=== PATIENT | female | born 1990 | race Caucasian/White ===

== ENCOUNTER 2022-12-21 03:11 | Day surgery (SDC) | payer OTHER, SELFPAY ==
[2022-12-13 10:00] VITALS: BMI 37.3
--- NOTE | 2022-12-13 10:16 | SUR.PREOP ---
Report to the Outpatient Waiting Room, entrance under the green pavilion located off [facility], at time 1200 on date 12/21/22. Planned Procedure Time: 1400. Time changes happen often and if your time is changed the preop area will call you the afternoon before. - You and your visitor will be asked to self-screen and do not enter if you have any COVID symptoms. - A mask is optional within the hospital at this time. Patients may have clear liquids (water, carbonated beverages, clear teas, apple juice) until 3 hours prior to surgery with a maximum of 20 ounces. - No food from midnight until time of surgery BEFORE 11:00 AM - Infants may have breast milk until 4 hours before surgery, infant formula 6 hours prior to surgery. - Children will be allowed to drink immediately following surgery. If applicable, please bring a bottle or sippy cup to assist with drinking. Juice, water, soda, and popsicles are readily available. For infants on formula, please bring formula the day of surgery. Pacifiers are allowed. Take the following medications with a SIP of water the morning of surgery: __N/A___ DO NOT STOP ANY OF YOUR OTHER PRESCRIPTION MEDICATIONS PRIOR TO SURGERY ?EXCEPT THE FOLLOWING Medications to discontinue per physician N/A Date to take last dose Please no make-up, nail albanian, hairspray, perfume, deodorant, or body powder the day of surgery. No jewelry (including any body piercings) or valuables the day of surgery, leave them at home. Please take a shower or bath the night before, or the morning of, surgery with an antibacterial soap. Wear comfortable, loose fitting clothing. Children are encouraged to wear pajamas. - Jewelry must be removed prior to entering the operating room. Rings and piercings that are not removed may be cut off. - The hospital will not accept responsibility for valuables. - Please leave all valuables, including medications, at home the day of surgery. If you are going home after surgery, a licensed concrete mixing truck driver must drive you home. - NO public transportation without another adult if you receive anesthesia. - We recommend that an adult stay with you for 24 hours following discharge. - We also recommend that you do not drive, make important decision, drink alcoholic beverages, or take any drugs that were not prescribed by your health care provider for at least 24 hours after your discharge time. For Pediatric surgeries, we recommend two adults accompany the child home. Follow any additional instructions given to you from your surgeon. If you or anyone in your household have experienced Covid symptoms in the past week, please notify your surgeon or the nurse liaison at the phone number below for possible testing. Telephone instructions given to _PATIENT_and asked if any additional questions and then verbalized understanding. Patient advised to call surgeon office or pre surgery nurse liaison [phone] if any additional questions.
--- NOTE | 2022-12-20 13:47 | PM.IMHP ---
H&P: HPI History of Present Illness Date/Time: 12/20/22 13:47 Chief Complaint: encounter for permanent sterilization Narrative: 32-year-old female who presents for laparoscopic bilateral salpingectomy for permanent sterilization. Patient does not desire any future children. She has previously tried long-acting reversible contraceptives. Review of Systems Cardiovascular: Cardiovascular: Denies chest pain, Denies leg edema, Denies palpitations, Denies dyspnea and Denies dyspnea on exertion Respiratory: Respiratory: Denies cough, Denies dyspnea and Denies dyspnea on exertion Gastrointestinal: Gastrointestinal: Denies abdominal pain, Denies constipation, Denies diarrhea, Denies nausea and Denies vomiting Genitourinary: Genitourinary: Denies hematuria, Denies urinary frequency, Denies dysuria, Denies pelvic pain, Denies urinary incontinence and Denies vaginal discharge Neurologic: Reports system reviewed and no additional complaints, except as documented Psychiatric: Psychiatric: Reports no additional psychiatric complaints Endocrine: Endocrine: Denies palpitations PMFSH Past Medical History Medical History (System 11/24/22 @ 06:43 by Kathy Lebron) Asthma Encounter for surveillance of implantable subdermal contraceptive Surgical History Surgical History (System 11/24/22 @ 06:43 by Kathy Lebron) H/O gynecological procedure 2022 Nexplanon removal 2020 Nexplanon removal/reinsertion 2016 Nexplanon insertion 2014 IUD insertion and removal 2015 Nexplanon removal 2014 Nexplanon insertion Social History Social History (System 11/24/22 @ 06:43 by Kathy Lebron) Smoking status: Current every day smoker Tobacco type: e-cigarettes/vaping Additional smoking assessment comments: PT VAPES DAILY FOR 2 YRS Alcohol intake: current Alcohol use details: OCCASIONALY Substance use: never Lack of Transportation: No Lack of Food: Never True Current Housing: I Have Housing Concerned About Future Housing: No Difficulty Paying Gas/Electric Bills: No Difficulty Paying for Meds: No Currently Unemployed: No Education: Associate Degree Difficulty w/ Childcare or Family Care: No Living arrangements: with family Additional living arrangements comments: children Occupation/Education: occupation Gender identity (if verbalized by the patient): Female Sexual Orientation (if Verbalized by the Patient): Straight or Heterosexual Spiritual care concerns: No Meds Home Medications and Allergies Home Medications Medication Instructions Recorded Confirmed Type No Home Medications 09/28/23 10/18/23 History Allergies Allergy/AdvReac Type Severity Reaction Status Date / Time No Known Allergies Allergy Verified 11/24/22 06:43 Exam Const: General: no acute distress Eyes: EOM: EOMs intact bilaterally Neck: Neck: supple Thyroid: thyroid normal Chest: Breast/axilla inspection: normal inspection of the breasts Breast/axilla palpation: normal palpation of the breasts, normal palpation of the axillae and no axillary lymphadenopathy Resp: Effort & Inspection: normal respiratory effort Auscultation: clear to auscultation bilaterally Cardio: Rate: regular rate Rhythm: regular rhythm GI: Inspection: non-distended GI Palp: Yes Soft to palpation, No Tenderness to palpation present (GI) and No Guarding due to palpation present (GI) Auscultation: normal bowel sounds : General: No bladder normal to palpation External Female Exam: normal external appearance Speculum Exam - Vagina: normal vaginal discharge and No vaginal bleeding Speculum Exam - Cervix: nontender Bimanual exam- vagina & uterus: No bladder normal to palpation and No Cervical tenderness present OB/external & speculum: No vaginal bleeding Skin: General skin exam: normal color and no rashes or lesions noted Neuro: Cognition (Neuro): normal cognition Speech: normal speech Extrem: General: normal
[2022-12-21] VITALS (8 sets, daily range): BP systolic 96–113; BP diastolic 45–71; PULSE 77–112; RESP 15–20; TEMP 36.3; O2SAT 96–100
--- NOTE | 2022-12-21 11:14 | WPDHPUPDATE1 ---
History and Physical Update Update Date/Time: 12/21/22 11:14 History and Physical has been reviewed, including an updated exam of the patient. There are NO changes in the patient's condition. Risks, benefits, and alternatives have been discussed and questions answered. Patient agrees to proceed with procedure.
[2022-12-21] MEDS: ACETAMINOPHEN 500 MG TABLET 1000 MG PO (11:59)
[2022-12-21] MEDS: LACTATED RINGERS 1,000 ML 30 ML IV CONT ×2 (12:10→15:09)
[2022-12-21 12:16] LABS: Hematocrit 42.6 % (37.0-47.0); Hemoglobin 14.4 g/dL (12.0-15.0); Mean Corpuscular HGB Conc 33.8 g/dl (32-36); Mean Corpuscular Volume 88.8 fl (80-100); Mean Platelet Volume 9.4 fl (7.4-10.4); Platelet Count Result 221 k/mm3 (150-375); Red Cell Distribution Width 12.7 % (11.5-14.5); White Blood Count 5.7 K/mm3 (4.5-10.0)
[2022-12-21] MEDS: KETOROLAC 15 MG/ML VIAL (*BKC) IV PUSH (12:18)
--- NOTE | 2022-12-21 14:07 | WPDANESEPPF ---
Anes - Initial Pre Proc Eval Procedure: Operation Date: 12/21/22 14:00 Proposed Procedures p Bilateral Laparoscopic Salpingectomy - Zechariah Hwang MD Date/Time: 12/21/22 14:07 Surgeon: Zechariah Hwang MD Pre Op Diagnosis: desires sterilization Patient Data Age: 32 Gender: F Height: 1.52 m Weight: 87.6 kg Last Vital Signs Temp 36.3 C L 12/21/22 12:22 Pulse 77 12/21/22 12:22 Resp 16 12/21/22 12:22 BP 110/71 12/21/22 12:22 Pulse Ox 98 12/21/22 12:22 O2 Del Method Room Air 12/21/22 12:22 Allergies Allergy/AdvReac Type Severity Reaction Status Date / Time No Known Allergies Allergy Verified 12/21/22 11:49 Home Medications Medication Instructions Recorded Confirmed Type No Home Medications 11/23/22 12/13/22 History Laboratory Tests 12/21/22 12:09 WBC 5.7 K/mm3 (4.5-10.0) RBC 4.80 M/mm3 (4.2-5.4) Hgb 14.4 g/dL (12.0-15.0) Hct 42.6 % (37.0-47.0) MCV 88.8 fl (80-100) MCH 30.0 pg (26-34) MCHC 33.8 g/dl (32-36) RDW 12.7 % (11.5-14.5) Plt Count 221 k/mm3 (150-375) MPV 9.4 fl (7.4-10.4) Patient hx anesthesia problems: none Family hx anesthesia problems: none Results Review: All pre-operative results and documents have been reviewed as part of the pre-operative evaluation. [facility] Past Medical History Medical History (System 11/24/22 @ 06:43 by Kathy Lebron) Asthma Encounter for surveillance of implantable subdermal contraceptive Surgical History Surgical History (System 11/24/22 @ 06:43 by Kathy Lebron) H/O gynecological procedure 2022 Nexplanon removal 2020 Nexplanon removal/reinsertion 2015 Nexplanon insertion 2014 IUD insertion and removal 2014 Nexplanon removal 2014 Nexplanon insertion Social History Social History (System 11/24/22 @ 06:43 by Kathy Roche Smoking status: Current every day smoker Tobacco type: e-cigarettes/vaping Additional smoking assessment comments: PT VAPES DAILY FOR 2 YRS Alcohol intake: current Alcohol use details: OCCASIONALY Substance use: never Lack of Transportation: No Lack of Food: Never True Current Housing: I Have Housing Concerned About Future Housing: No Difficulty Paying Gas/Electric Bills: No Difficulty Paying for Meds: No Currently Unemployed: No Education: Associate Degree Difficulty w/ Childcare or Family Care: No Living arrangements: with family Additional living arrangements comments: children Occupation/Education: occupation Gender identity (if verbalized by the patient): Female Sexual Orientation (if Verbalized by the Patient): Straight or Heterosexual Spiritual care concerns: No Anes - Eval Final PreProcedure Day of Procedure 12/21/22 14:07 Patient weight: obese Heart: regular rate and rhythm Lungs: clear to auscultation Airway: Mallampati scale class II Neurological: alert and oriented Last oral intake: >/= 8 hours ASA classification: II Emergent: no Anesthetic plan: proceed Anesthesia type and monitoring: general ETT and standard monitoring Results Review: All pre-operative results and documents have been reviewed as part of the pre-operative evaluation. Informed Consent: The patient's anesthetic plan and its attendant risks and benefits were discussed with the patient/family/POA. Questions were solicited and answers provided to the satisfaction of the patient/family/POA.
--- NOTE | 2022-12-21 14:55 | P.OP_ITS ---
Procedure Note - Detailed Date of Procedure 12/21/22 Pre-op Diagnosis desires sterilization Post-op Diagnosis Same Procedure Performed laparoscopic bilateral salpingectomy Surgeon Zechariah Hwang MD Anesthesia General Indications desires permanent sterilization Findings normal appearing uterus, bilateral fallopian tubes and ovaries incarcerated GI epiploica Description of Procedure the patient was taken to the operating room where general endotracheal anesthesia was undertaken and found to be adequate. She was then prepped and draped in the dorsal lithotomy position. A pre-operative team brief and time- out were completed. A catheter was placed to drain the bladder. Attention was then turned to the abdomen which was anesthetized umbilical he with injected anesthetic. A 5 mm skin incision was made in the umbilicus. A 5 mm optical trocar was then placed with direct visualization of the abdominal layers during placement. The trocar stylette was removed and the camera was used to verify intra-abdominal placement.randee was used to verify intra-abdominal placement. CO2 insufflation was then connected and The abdominal cavity was insufflated. General abdominal and pelvic survey was performed. Two other laparoscopic port site incisions were made approximately 2 cm superior and medial of the ASIS bilaterally. Both fallopian tubes were inspected and identified out to the level of the fimbriae. The Fimbriated end of the left fallopian tube was then grasped with a blunt grasper. the fallopian tube was then transected along its inferior aspect along the mesosalpinx with the LigaSure device. Transection was carried out to the fallopian tubes insertion into the uterine fundus. The fallopian tube was then completely transected from the uterus using the LigaSure device. This procedure was repeated for the right fallopian tube. Good hemostasis was maintained throughout. The transected fallopian tubes were removed from the abdomen through the 5 mm laparoscopic port. Upon survey, and incarcerated GI epiploica was noted. It was transected with the LigaSure device and removed from the abdomen through the 5 mm port. The surgical field was inspected and again could hemostasis was noted. At this point the procedure was ended. The abdomen was desufflated. All laparoscopic ports were removed from the abdomen. Abdominal incisions were closed with 4-0 Vicryl in a subcuticular fashion. Sponge, lap and needle counts were correct. The patient tolerated the procedure well. The patient was taken out of dorsal lithotomy. anesthesia was reversed. The patient was taken to PACU in stable condition. Estimated Blood Loss 10 Urine Output 150 Drains No Packing No Pathology Yes ( Bilateral fallopian tubes, GI epiploica) Complications No immediate complications Condition Stable Disposition PACU [facility] Billing Surgery - Charge Forward: Surgery Billing
[2022-12-21] MEDS: LIDO 1%/EPINEPHRINE 1:100,000 20 ML VIAL INFILTRATE (15:11)
== END 2022-12-21 16:54 | disposition home or self-care (01) ==
PROVIDERS: PCP Internal Medicine Gastroenterology; Visit Provider Student in an Organized Health Care Education/Training Program
PROC: (CPT 49320; principal; 2022-12-21 14:00)
DX: Z30.2 Encounter for sterilization (principal); N94.89 Other specified conditions associated with female genital organs and menstrual cycle; F17.290 Nicotine dependence, other tobacco product, uncomplicated; E66.9 Obesity, unspecified; Z68.37 Body mass index [BMI] 37.0-37.9, adult
CPT/HCPCS: 58661; 36415; 85027; 88302; 88304; A9270; J1100; J1885; J2250; J2405; J2704; J3010; J7120